=== PATIENT | male | born 1985 | race Caucasian/White ===

== ENCOUNTER 2017-12-16 10:24 | Emergency (ER) | payer SELFPAY ==
[~2017-12-16] VITALS: Ht 165.1 cm; Wt 81.8 kg
[2017-12-16] MEDS ORDERED: BACITRACIN 0.9 GM PACKET OINTMENT TP ONE (11:45)
[2017-12-16] MEDS ORDERED: LIDOCAINE HCL 1% 10 ML VIAL INJ ONE (11:45)
[2017-12-16] MEDS ORDERED: POVIDONE-IODINE 10% 15 ML SOLUTION UD TP ONE (11:45)
[2017-12-16 12:55] VITALS: BP 145/78
== END 2017-12-16 12:59 | disposition home or self-care (01) ==
LOC: EDBD → EMS 10:26
DX: S01.111A Laceration without foreign body of right eyelid and periocular area, initial encounter (principal); S00.83XA Contusion of other part of head, initial encounter; W21.89XA Striking against or struck by other sports equipment, initial encounter; Y93.66 Activity, soccer; Y92.89 Other specified places as the place of occurrence of the external cause; Y99.8 Other external cause status
CPT/HCPCS: 12013; 99283; J3490

== ENCOUNTER 2017-12-23 11:13 | Emergency (ER) | payer SELFPAY ==
[~2017-12-23] VITALS: Ht 165.1 cm; Wt 72.7 kg
[2017-12-23 12:59] VITALS: BP 122/71
== END 2017-12-23 13:00 | disposition home or self-care (01) ==
LOC: EDUNIT# 11:13 → EMS 11:15
DX: Z48.02 Encounter for removal of sutures (principal); R03.0 Elevated blood-pressure reading, without diagnosis of hypertension
CPT/HCPCS: 99282